=== PATIENT | female | born 1970 | race Caucasian/White ===

== ENCOUNTER 2018-09-22 12:43 | Outpatient (RCR) | payer BC | END 2018-10-06 | LOC: OT 12:43 | PROVIDERS: ATTEND Plastic Surgery | DX: M18.0 Bilateral primary osteoarthritis of first carpometacarpal joints (principal) | CPT/HCPCS: L3913 ×2 ==

== ENCOUNTER → 2018-11-06 | Outpatient (RCR) | payer BC | LOC: OT 15:07 | PROVIDERS: ATTEND Plastic Surgery | DX: M18.0 Bilateral primary osteoarthritis of first carpometacarpal joints (principal) ==